=== PATIENT | female | born 1965 | race Caucasian/White ===

== ENCOUNTER → 2018-01-16 16:09 | Outpatient (CLI) | payer BC, SELFPAY ==
[2018-01-16 18:27] LABS: Absolute Lymphocyte Count 2.06 X10^3/ul (0.83-4.51); Absolute Neutrophil Count 3.7 X10^3/uL (2.0-7.7); Basophil# 0.02 X10^3/uL; Basophil% 0.3 % (0-1); Eosinophil# 0.28 X10^3/uL; Eosinophils% 4.3 % (0-5); Hematocrit 41.5 % (37-47); Hemoglobin 13.4 g/dl (12.0-15.0); Lymphocyte # 2.06 X10^3/ul (4.0); Lymphocyte % 31.6 % (19-41); Mean Corp Hgb Conc 32.3 g/gl (32-36); Mean Corpuscular Hgb 29.1 pg (27.0-32.0); Mean Corpuscular Volume 90.2 fL (81-99); Mean Platelet Vol. 9.4 fl (6.2-12.0); Monocyte# 0.45 X10^3/uL; Monocyte% 6.9 % (0-10); Neutrophil % 56.9 % (47-70); Platelet Count 245 K/mm3 (150-450); RBC Distribution Width CV 12.7 % (11.6-14.6); RBC Distribution Width SD 41.8 fl (35.1-43.9); White Blood Count 6.5 K/mm3 (4.4-11.0)
[2018-01-16 18:35] LABS: POSITIVE COUNT NO; POSITIVE DIFFERENTIAL NO; POSITIVE MORPHOLOGY NO
[2018-01-16 19:00] LABS: ALB/GLOB Ratio 0.9 RATIO (0.9-2.4); AST(SGOT) 19 U/L (15-37); Alanine Aminotransfer ALT/SGPT 20 U/L (13-56); Albumin, Serum 3.6 g/dL (3.2-5.0); Alkaline Phosphatase 117 U/L (45-117); Anion Gap 6 (5-15); BUN 16 mg/dL (7-18); BUN/Creat Ratio 25.8 RATIO (10-20); Calcium,Total 8.7 mg/dL (8.5-10.1); Chloride 103 mmol/L (98-107); Creatinine, Serum 0.62 mg/dL (0.55-1.02); EST Glomerular Filtration Rate 107 mL/min (>60); Est Glom Filt Rate - Afr Amer 129 mL/min (>60); Globulin 3.8 g/dL (2.2-4.2); Glucose 68 mg/dL (74-106); Potassium 3.6 mmol/L (3.5-5.1); Protein, Total 7.4 g/dL (6.4-8.2); Sodium Level 138 mmol/L (136-145); Thyroid Stim Hormone (TSH) 1.49 uIU/mL (0.358-3.74)
== END ==
PROVIDERS: Family Provider Family Medicine; PCP Family Medicine; Visit Provider Family Medicine
DX: L65.9 Nonscarring hair loss, unspecified (principal)
CPT/HCPCS: 36415; 80053; 84443; 85025

== ENCOUNTER → 2020-12-05 09:16 | Outpatient (CLI) | payer BC, SELFPAY ==
[2020-12-05 10:15] LABS: Absolute Lymphocyte Count 1.47 X10^3/uL (0.83-4.51); Absolute Neutrophil Count 2.7 X10^3/uL (2.0-7.7); Basophil# 0.05 X10^3/uL; Eosinophil# 0.26 X10^3/uL; Eosinophils% 5.3 % (0-5); Hematocrit 45.1 % (37-47); Hemoglobin 14.4 g/dL (12.0-15.0); Lymphocyte # 1.47 X10^3/ul (4.0); Lymphocyte % 30.2 % (19-41); Mean Corp Hgb Conc 31.9 g/dL (32-36); Mean Corpuscular Hgb 29.6 pg (27.0-32.0); Mean Corpuscular Volume 92.6 fL (81-99); Mean Platelet Vol. 9.3 fl (6.2-12.0); Monocyte# 0.36 X10^3/uL; Monocyte% 7.4 % (0-10); NRBC Flagged by Analyzer 0 % (0-5); Neutrophil # 2.71 X10^3/uL (2.7-7.7); Neutrophil % 55.7 % (47-70); Platelet Count 278 K/mm3 (150-450); RBC Distribution Width CV 12.2 % (11.6-14.6); RBC Distribution Width SD 41.5 fl (35.1-43.9); Red Blood Count 4.87 M/mm3 (4.2-5.4); White Blood Count 4.9 K/mm3 (4.4-11.0)
[2020-12-05 11:00] LABS: ALB/GLOB Ratio 0.9 RATIO (0.9-2.4); AST(SGOT) 17 U/L (15-37); Alanine Aminotransfer ALT/SGPT 25 U/L (13-56); Albumin, Serum 3.6 g/dL (3.2-5.0); Alkaline Phosphatase 117 U/L (45-117); Anion Gap 5 (5-15); BUN 11 mg/dL (7-18); BUN/Creat Ratio 15.1 RATIO (10-20); CRP < 2.90 mg/L (0.0-3.0); Calcium,Total 8.9 mg/dL (8.5-10.1); Chloride 104 mmol/L (98-107); Creatinine, Serum 0.73 mg/dL (0.55-1.02); EST Glomerular Filtration Rate 88 mL/min (>60); Est Glom Filt Rate - Afr Amer 106 mL/min (>60); Globulin 3.8 g/dL (2.2-4.2); Glucose 85 mg/dL (74-106); Lipase 107 U/L (73-393); Potassium 3.8 mmol/L (3.5-5.1); Protein, Total 7.4 g/dL (6.4-8.2); Sodium Level 140 mmol/L (136-145)
[2020-12-09 14:06] LABS: H. PYLORI STOOL AG Negative (Negative)
== END ==
PROVIDERS: PCP Family Medicine; Referring Provider Family Medicine; Visit Provider Family Medicine
DX: K29.80 Duodenitis without bleeding (principal)
CPT/HCPCS: 36415; 80053; 83690; 85025; 86140; 87506

== ENCOUNTER → 2020-12-12 08:58 | Outpatient (CLI) | payer BC, SELFPAY ==
--- NOTE | 2020-12-12 09:00 | US_ITS ---
STUDY: ABDOMINAL ULTRASOUND - RIGHT UPPER QUADRANT REASON FOR VISIT: Female, 55 years old post prandial, epigastric/RUQ pain. Suspect duodenal ulcer TECHNIQUE: Ultrasound evaluation of the right upper quadrant was performed with real-time and static schulz-scale imaging. TECHNICAL QUALITY: Adequate. COMPARISON: None. FINDINGS: Liver: The liver measures 15.7 cm. There is normal echogenicity of the liver. The bile ducts are within normal limits. There is hepatic color flow. The direction of portal flow is hepatopetal. There is no demonstrated mass lesion. Gallbladder: Normal distended gallbladder. The gallbladder wall measures 2.5 mm. There is a negative sonographic Matamoros''s sign. There is no pericholecystic fluid. There are no gallstones. There is a 7 mm 7 mm x 6 mm polyp. Common Bile Duct (C.B.D.): The common bile duct measures 7.3 mm. Pancreas: Normal size of the head, body and tail of the pancreas. There is normal echogenicity of the pancreas. There is no demonstrated pancreatic mass or cyst. Right Kidney: Normal size of the right kidney. The right kidney measures 11.3 cm x 6.7 cm x 5.4 cm. Normal renal cortex. The right cortex measures 1.8 cm. There is a 2.7 cm x 2.6 cm x 2.2 cm renal cyst. There is no right hydronephrosis. US/Abdomen Limited IMPRESSION: Gallbladder polyp. Right renal cyst. Electronically Signed: Pancho Barrientos MD at 13:55 EDT , Service support ,
== END ==
PROVIDERS: PCP Family Medicine; Referring Provider Family Medicine; Visit Provider Family Medicine
DX: R10.13 Epigastric pain (principal)
CPT/HCPCS: 76705

== ENCOUNTER → 2021-01-16 10:10 | Outpatient (CLI) | payer BC, SELFPAY ==
--- NOTE | 2021-01-16 10:12 | NM_ITS ---
CLINICAL: 55-year-old female with reported history of epigastric-right upper quadrant abdominal pain. RADIONUCLIDE HEPATOBILIARY SCINTIGRAPHY COMPARISON: Abdominal ultrasound report 12/12/2020 FINDINGS: Following the intravenous administration of 5.6 mCi of 99m Tc Mebrofenin, hepatobiliary images reveal: 1. Relatively prompt and homogeneous radiopharmaceutical concentration is noted by a normal sized liver. No parenchymal defects are identified. 2. Gallbladder activity is identified at 30 minutes post radiopharmaceutical administration. 3. Small intestinal tract is observed at 30 minutes following tracer injection. 4. Washout of the radiopharmaceutical by the hepatic parenchyma appears qualitatively normal. The patient was administered a fatty meal (8 ounces Half and Half - 24 grams of fat). The post fatty meal consumption gallbladder ejection fraction calculated at 20 minutes was noted to be 76.0 % (normal greater than 30%). [place]/Hepatobilliary Img w/Pharm Int IMPRESSION: 1. NORMAL 99m Tc Mebrofenin hepatobiliary imaging examination with fatty meal ingestion. A. A gallbladder ejection fraction calculated to be greater than 30% following the administration of a consumed fatty meal makes the probability of functional hepatobiliary disease (gallbladder and/or sphincter of Oddi dyskinesia) and/or organic hepatobiliary disease (chronic acalculous cholecystitis and/or cystic duct syndrome) to be low. (Dangelo and Devon, J Nucl Med 43: 1603, 2002). Electronically Signed: Luigi Wu DO at 18:28 EDT Tel , Service support ,
== END ==
PROVIDERS: PCP Family Medicine; Referring Provider Family Medicine; Visit Provider Family Medicine
DX: R10.31 Right lower quadrant pain (principal)
CPT/HCPCS: 78227; A9537

== ENCOUNTER → 2021-03-20 14:36 | Outpatient (CLI) | payer BC, SELFPAY ==
[2021-03-20 18:00] LABS: CRP < 2.90 mg/L (0.0-3.0)
[2021-03-24 16:08] LABS: Endomysial Antibody IgA Negative (Negative)
[2021-03-24 20:08] LABS: Immunoglobulin A 288 mg/dL (87-352); t-Transglutaminase IgA <2 U/mL (0-3)
== END ==
PROVIDERS: PCP Family Medicine; Referring Provider Internal Medicine Gastroenterology; Visit Provider Internal Medicine Gastroenterology
DX: R19.7 Diarrhea, unspecified (principal)
CPT/HCPCS: 36415; 82784; 83516; 86140; 86255

== ENCOUNTER 2021-09-04 12:23 | Day surgery (SDC) | payer BC, SELFPAY ==
[2021-09-04] VITALS (9 sets, daily range): BP systolic 123–143; BP diastolic 78–87; PULSE 59–73; RESP 16; TEMP 35.8–36.9; O2SAT 96–100; BMI 29.0
[2021-09-04] MEDS: Lactated Ringers 1,000 ML 15 ML IV (12:50)
--- NOTE | 2021-09-04 14:00 | RAD_ITS ---
STUDY: INTRAOPERATIVE FLUOROSCOPY TECHNIQUE: The examination was performed with referring physician in attendance. Under fluoroscopic observation, fluoroscopic images were obtained. Radiologist was not present for the study. Radiologist did not perform the procedure. This dictation is for documentation of the radiation dosage only. There is no interpretation of the images. TOTAL NUMBER OF IMAGES: 1 COMPARISON: None RADIATION DOSE: .07 mGy FLUOROSCOPY TIME: .09 minutes REASON FOR EXAM: PAIN Technologist Notes FUSION SUBTALAR JOINT Female, 56 years old. FINDINGS: Pins and screws are visualized overlying the foot. RAD/Ankle 2 Views IMPRESSION: Fluoroscopic assistance images were obtained. Dictation for documentation purposes only. Electronically Signed: Gaetano Herrera MD at 16:36 EST , Service support ,
[2021-09-04] MEDS: Bupivacaine Mpf 0.5% 30 ML VIAL (14:19)
--- NOTE | 2021-09-04 15:19 | PCM.DC ---
Discharge Instructions Follow Up Care Test Results: Test results from this visit will be discussed in further detail at your follow-up appointment, if applicable. Discharge Plan Admission Attending Provider: Josh Lam Primary Care Provider: Valerie Ybarra Discharge Orders/Prescriptions Prescriptions: No Action NK RF: 0 Referrals / Follow Up: Valerie Ybarra MD [Primary Care Provider] - Disposition Disposition (needs filled in before D/C Order can be placed): Home, Self Care
--- NOTE | 2021-09-04 15:20 | OP.PCM_ITS ---
Report of Operation Date of Procedure: 09/04/21 Pre-Operative Diagnosis: Hallux abductovalgus deformity left foot Post-Operative Diagnosis: Same Surgery/Procedure Performed:: Lapidus fusion with modified Villaseñor bunionectomy left foot Surgeon: Josh Lam Type of Anesthesia: General/Supplemental Estimated Blood Loss (mL): 2 Description of Procedure: Patient was brought to the operating room placed on the table in the supine position general anesthesia was administered and a local anesthetic was injected. Foot was prepped and draped in usual sterile fashion elevated and exsanguinated and the tourniquet was inflated to 250 mmHg around the thigh. Attention was directed to the first metatarsophalangeal joint where a dorsal linear incision was made deepened by blunt dissection an inverted L- shaped capsulotomy was made freeing it from side to side exposing the prominent medial eminence which was resected with a saw attention was directed laterally where a lateral capsulotomy was performed the abductor tendon was released the toe was easily reducible at this point. Attention was now directed proximally to the first tarsometatarsal joint where a 4 cm linear incision was made deepened by sharp and blunt dissection the periosteum and capsule was freed from side to side exposing the joint in its entirety a joint distractor was used to open up the joint and the remaining Cher mating portions of the cartilage were resected with a curette and then a saw blade was used to feather the fusion site to close down the intermetatarsal angle was checked several times under C-arm fluoroscopy it was temporarily fixated with crossing K wires which would later be used as guidewires for 4.0 mm Synthes screws the length and placement were checked the IM angle was closed down there was no elevatus so 3 typical fixation technique two 4.0 mm cannulated Marbin screws were crossed and fused to the first metatarsocuneiform joint. The wound is flushed with copious amounts normal saline solution deep tissue was closed with Vicryl and the skin was closed with nylon dry sterile dressing was applied tourniquet was deflated full vascular status was restored to the foot and digits patient tolerated the anesthesia procedure well Complications None Admit VTE Documentation VTE Present on Admission: Yes VTE Mechan Device Prophylaxis: SCD's
== END 2021-09-04 18:17 ==
LOC: SDC 12:25 → AC 12:25
PROVIDERS: PCP Family Medicine; Referring Provider Podiatrist Foot & Ankle Surgery; Visit Provider Podiatrist Foot & Ankle Surgery
PROC: (CPT 28725; principal; 2021-09-04 13:45)
DX: M20.12 Hallux valgus (acquired), left foot (principal); Z87.19 Personal history of other diseases of the digestive system
CPT/HCPCS: 28270; 28297; 73600; 76000; 93005; 97161; C1713; J7120; C1769; J2405

== ENCOUNTER → 2022-10-15 | Outpatient (CLI) | payer BC, SELFPAY ==
--- NOTE | 2022-10-15 14:35 | RAD_ITS ---
STUDY: X-RAY CHEST REASON FOR EXAM: Female, 57 years old. Cough since July. Now with right-sided lower chest pressure and pain. TECHNIQUE: PA and lateral views of the chest. COMPARISON: None. FINDINGS: The lungs are clear and expanded. There is no demonstrated pleural abnormality. Normal size heart. Normal mediastinum and trevor. Normal visualized pulmonary arteries. Normal visualized aortic arch and descending thoracic aorta. There is demineralization of the osseous structures. Normal visualized ribs, clavicles, and shoulders. There is no demonstrated abnormality of the visualized soft tissue structures of the upper abdomen. RAD/Chest PA and Lateral IMPRESSION: No acute cardiopulmonary disease. Electronically Signed: Vignesh Finley DO at 18:12 [facility] ,
== END | disposition home or self-care (01) ==
LOC: MTLAB 14:27 → MTRAD 14:34
PROVIDERS: PCP Family Medicine; Referring Provider Family Medicine; Visit Provider Family Medicine
DX: R05.9 Cough, unspecified (principal)
CPT/HCPCS: 71046

== ENCOUNTER 2024-09-09 23:45 | Emergency (ER) | payer BC, SELFPAY ==
[2024-09-09 23:46] VITALS: BP 173/103; PULSE 73; RESP 16; TEMP 36.8; O2SAT 98; BMI 31.7
[2024-09-09 23:50] VITALS: TEMP 36.8; O2SAT 98
[2024-09-10] MEDS: Diphth,Pertuss(Acell),Tet Vac 0.5 ML Vial IM (00:10)
[2024-09-10] MEDS: Lidocaine 1% (20 ml mdv) 20 ML Vial INFILT (00:10)
[2024-09-10 01:05] VITALS: BP 154/95; PULSE 67; RESP 18; TEMP 36.8; O2SAT 96
--- NOTE | 2024-09-10 02:16 | EDS_ITS ---
HPI HPI - Fall History of Present Illness Chief Complaint: Fall Informant: patient and spouse/S.O. Narrative Narrative: Mechanical fall on ice outside 2 hours prior to arrival. Lip laceration contusion. No headaches or loss of conscious. No anticoagulants. Tetanus unknown. History of this in the past. No pain chest back or extremities at this time. Tetanus Immunization: Unknown PFS PFS Medical History Wears glasses History of IBS Non-smoker Home Medications ?Medication ?Instructions ?Recorded ?Last Taken ?Type NK 08/28/21 Unknown History Allergy/AdvReac Type Severity Reaction Status Date / Time No Known Allergies Allergy Verified 09/09/24 23:46 Surgical History History of colonoscopy History of hysterectomy History of nasal polypectomy Social History Smoking Status: Never smoker ROS ROS ED Constitutional Constitutional ED: Denies fever(s) Cardiovascular Cardiovascular: Denies chest pain Gastrointestinal Gastrointestinal: Denies abdominal pain, diarrhea, nausea or vomiting Musculoskeletal Musculoskeletal: Denies back pain, extremity pain or neck pain Integumentary Reports wounds; Denies rash Neurologic Neurologic: Denies headache(s), paresthesias or weakness EXAM Physical Exam Const Vital Signs: 09/09/24 23:46 09/09/24 23:50 09/10/24 01:05 Temperature 98.2 F 98.2 F 98.2 F Temperature Source Oral Pulse Rate 73 67 Respiratory Rate 16 18 Respiratory Effort Normal Non-Labored Respiratory Depth Normal Respiratory Pattern Normal Blood Pressure 173/103 H 154/95 H Blood Pressure Mean 126 114 Pulse Ox 98 98 96 Oxygen Delivery Method Room Air Room Air Positive well nourished and well developed Constitutional Narrative: GCS 15. General Appearance ED: well developed and NAD HEENT Reports moist mucous membranes HEENT Narrative: Left upper lip laceration 2 cm outer aspect lip however does not cross vermilion. Contusion left lower lip. There is no dental trauma or loosening. No trismus of the jaw. normocephalic Eyes General Eye ED: Yes normal appearance of both eyes Neck full ROM and supple Chest Wall inspection of chest normal and palpation of chest normal Chest: Negative for tenderness Resp normal respiratory effort and normal air movement Effort and Inspection: symmetric chest movement; Negative for respiratory distress Cardio regular rate, regular rhythm and no murmurs Peripheral Pulses: pulses 2+ throughout GI normal to inspection, nondistended, normoactive bowel sounds and non-tender Palpation: Negative for guarding or rebound tenderness present Extremity normal to inspection General Extremety ED: Negative for edema or tenderness General Extremity: Negative for edema Neuro oriented x3, CN's II-XII intact bilaterally and no sensory deficits noted Sensorium / Orientation: awake and alert Skin Skin Narrative: See above MDM MDM MDM Narrative Medical decision making narrative: Interventions / MDM: Differential diagnosis: Head injury, lip laceration Diagnosis considered but do not suspect: Intracranial hemorrhage however Nexus CT head criteria negative. No dental injury. My EKG interpretation: N/A Imaging independently reviewed and interpreted by myself: N/A External documents reviewed: N/A Test considered but not ordered:N/A ED course: Fall isolated lip laceration no other injuries. No focal deficit. No headaches or other pains. No dental injury. Tetanus updated. Plan for laceration repair of the lip. Procedure note: Laceration repair. Normal sterile conditions. 1.5 cc 1% lidocaine without epinephrine used for local analgesia the wound. Wound cleansed with normal saline. Total of 2, 6-0 nylon simple interrupted sutures placed to the laceration with good approximation. Patient tolerated procedure well. Laceration repaired. Wound care discussed. Sutures removed in 5 days. All questions were answered. Re-evaluation: stable Disposition discussed with patient/family/significant other: Patient and significant other Case discussed with consulting clinician: N/A This note was generated with [employer] dictation software. It may contain incorrect words, spelling, and punctuation that were not noted in checking the note before signing. Discharge Plan Triage Chief Complaint: Fall ED Provider: Wei Diaz Dx/Rx/DC Orders Clinical Impression: Laceration of lip, Contusion of lip, Fall, Tetanus toxoid vaccination a dministered at current visit Instructions: ED Laceration, Lip or Mouth Prescriptions: No Action NK Primary Care Provider: Valerie Ybarra Referrals: Valerie Ybarra MD [Primary Care Provider] - 5 Days for suture removal Activity Restrictions/Additional Instructions: 2 sutures placed on her upper lip. Have removed in 5 days. Your tetanus was updated. Print Language: [place] Disposition Disposition: Home, Self Care Discharge Date/Time: 09/10/24 01:06
== END 2024-09-10 01:06 | disposition home or self-care (01) ==
PROVIDERS: Emergency Provider Emergency Medicine; PCP Family Medicine; Visit Provider Emergency Medicine
DX: S01.511A Laceration without foreign body of lip, initial encounter (principal); W00.0XXA Fall on same level due to ice and snow, initial encounter; Z23 Encounter for immunization
CPT/HCPCS: 12011; 90471; 90715; 99282